=== PATIENT | male | born 1950 | race Caucasian/White ===

== ENCOUNTER → 2017-03-30 | Outpatient (CLI) | payer OTHER ==
[~2017-03-30] MED LIST: ASPIRIN81 M2 PO; ASTAXANTHIN4 MG PO; ATORVASTATIN CA20 MG PO; BIOTIN5 MG PO; CALCIUM 500 +1 EAC5 PO; CLA 1,000 MG1000 MG PO; COREG3.125 MG PO; COREG6.25 MG PO; EFFIENT10 MG PO; EPA-DHA 720 SO1 EACH PO; FERREX 150150 MG PO; FLAX SEED OIL1000 MG PO; FOLTX TABLET1 EAC1 PO; GINKGO BILOBA120 M1 PO; GLUCOSAMINE HC500 MG PO; HYALURONIC ACI1 EACH PO; HYDROCODON-ACE1 EAC7 PO; KRILL OIL 5001 EACH PO; LISINOPRIL10 MG PO; LISINOPRIL2.5 MG PO; LUKAID GLA1 GM/1 ML PO; LYCOPENE10 MG PO; MELATONIN3 MG PO; MSM1500 MG PO; NITROGLYCERIN0.4 MG SUBLING; OMEGA-31000 M1 PO; PACERONE 200 M200 M1 PO; PROSTATE HEALT1 EAC1 PO; RED WINE EXTRA1 EAC1 PO; RESVERATROL250 MG PO; SAW PALMETTO 1160 MG PO; SAW PALMETTO450 MG PO; SELENIMIN50 MCG PO; TYLENOL325 MG PO; UNICOMPLEX M TA1 TA1 PO; VITAMIN D1000 UNI1 PO; VITAMIN D3400 UNIT PO; VITAMIN E400 UNIT PO; VITAMINC500 PO; XALATAN2.5 ML OPHTHALMIC; ZINC30 M1 PO; [UNRECOGNIZED DRUG - OTHER] IV; [UNRECOGNIZED DRUG - OTHER] PO; [UNRECOGNIZED DRUG - OTHER] PO
== END ==
LOC: CAT 08:22
PROVIDERS: Internal Medicine Cardiovascular Disease
DX: I77.810 Thoracic aortic ectasia (principal)

== ENCOUNTER → 2017-07-09 | Outpatient (CLI) | payer OTHER | LOC: NUC 07:45 | DX: I25.10 Atherosclerotic heart disease of native coronary artery without angina pectoris (principal) ==

== ENCOUNTER → 2018-01-18 | Outpatient (CLI) | payer OTHER ==
--- NOTE | ~2018-01-18 | 2DMMODE ---
[facility] [address] [place] [address] 2 D/M-MODE ECHOCARDIOGRAM Name: GREGG MASON Room #: REG REPLACED BY [facility]#: [id number] Admission: 01/18/18 Attend Phys: Jake Grant MD Discharge: Date of : 50 Date of Service: 01/18/18 1017 Report #: [id number] THIS REPORT FOR: //name// APPROVED REPORT Study performed: 01/18/2018 09:15:42 EXAM: Comprehensive 2D, Doppler, and color-flow Echocardiogram Patient Location: Echo lab Status: routine BSA: 2.30 BP: 136/84 mmHg Other Information Study Quality: Good Indications CAD Hypertension/HDD 2D Dimensions RVDd: 40.99 mm LVEF(%): 33.94 (>50%) IVSd: 16.84 (7-11mm) LVOT Diam: 24.84 (18-24mm) LVDd: 54.09 mm PWd: 16.25 (7-11mm) Ascending Ao: 46.11 (22-36mm) LVDs: 45.26 (25-40mm) Aortic Root: 36.48 mm IVC: 16.00 mm Valdes's LVEF: 33.94 % Volumes Left Atrial Volume (Systole) Single Plane 4CH: 69.59 mL Single Plane 2CH: 109.52 mL LA ESV Index: 42.00 mL/m2 Aortic Valve AoV Peak Mert.: 2.61 m/s AO Peak Gr.: 27.18 mmHg LVOT Max P.50 mmHg AO Mean Gr.: 16.07 mmHg LVOT Mean P.97 mmHg AO V2 Mean: 1.93 m/s LVOT Max V: 0.94 m/s AO V2 VTI: 63.38 cm LVOT Mean V: 0.63 m/s BA (VTI): 1.94 cm2 LVOT V1 VTI: 25.33 cm BA Vmax: 1.74 cm2 AI Vmax: 4.03 m/s SV (LVOT): 122.75 mL [facility] [place] [place] [address] 2 D/M-MODE ECHOCARDIOGRAM Name: GREGG MASON Room #: [facility]#: [id number] Admission: 01/18/18 Attend Phys: Jake Grant MD Discharge: Date of : 50 Date of Service: 01/18/18 1017 Report #: [id number] [place]: 3.20 m/s2 AI PHT: 364.66 ms Mitral Valve E/A Ratio: 1.3 MV Decel. Time: 223.06 ms MV E Max Mert.: 0.77 m/s MV A Mert.: 0.59 m/s MV PHT: 64.69 ms Pulmonary Valve PV Peak Mert.: 0.89 m/s PV Peak Gr.: 3.15 mmHg Pulmonary Vein P Vein S: 0.57 m/s P Vein A: 0.25 m/s P Vein D: 0.65 m/s P Vein A Dur.: 110.7 msec P Vein S/D Ratio: 0.88 Tricuspid Valve TR Peak Mert.: 2.86 m/s RAP Estimate: 5.00 mmHg TR Peak Gr.: 32.80 mmHg PA Pressure: 38.00 mmHg Left Ventricle Left ventricle is at the upper limits of normal. Hypokinesis of the inferior wall Mild concentric left ventricular hypertrophy. Left ventricular systolic function is mild to moderately decreased. LVEF is 40-45%. Right Ventricle Right ventricle is normal. The right ventricular systolic function is normal. Atria Left atrium is moderately dilated. Right atrium is moderately dilated. Aortic Valve Aortic valve is calcified. Mild to moderate aortic regurgitation. There is mild valvular aortic stenosis. Calculated aortic valve area is 1.7 cm2 with maximum pressure gradient of 27 mmHg and mean pressure gradient of 16 mmHg. Mitral Valve The mitral valve is normal in structure. Mild to moderate mitral regurgitation. No evidence of mitral valve stenosis. [address] [address] 2 D/M-MODE ECHOCARDIOGRAM Name: GREGG MASON Room #: REG REPLACED BY [facility]#: [id number] Admission: 01/18/18 Attend Phys: Jake Grant MD Discharge: Date of : 50 Date of Service: 01/18/18 1017 Report #: [id number] Tricuspid Valve The tricuspid valve is normal in structure. Mild tricuspid regurgitation. PAP is estimated at 38 mmHg. Pulmonic Valve The pulmonary valve is normal in structure. Mild pulmonic regurgitation. Great Vessels The aortic root is normal in size. The ascending aorta is mildly dilated at 4.6 cm. IVC is normal in size and collapses >50% with inspiration. Pericardium There is no pericardial effusion. <Conclusion> Left ventricle is at the upper limits of normal. Mild concentric left ventricular hypertrophy. Left ventricular systolic function is mild to moderately decreased. Left atrium is moderately dilated. Mild to moderate aortic regurgitation. There is mild valvular aortic stenosis. Mild to moderate mitral regurgitation. Mild tricuspid regurgitation. PAP is estimated at 38 mmHg. The ascending aorta is mildly dilated at 4.6 cm. <ELECTRONICALLY SIGNED> By: Jake Grant MD 01/18/18 1017 1017 1017 Jake Grant MD /INF
== END ==
LOC: CV 08:31
DX: I25.10 Atherosclerotic heart disease of native coronary artery without angina pectoris (principal)

== ENCOUNTER → 2018-10-08 | Outpatient (CLI) | payer OTHER ==
[2018-10-08 08:53] LABS: CREATININE 1.1 mg/dL (0.7-1.3)
== END ==
LOC: CAT 08:01
PROVIDERS: Internal Medicine Cardiovascular Disease
DX: I71.1 Thoracic aortic aneurysm, ruptured (principal); K42.9 Umbilical hernia without obstruction or gangrene; M25.78 Osteophyte, vertebrae

== ENCOUNTER → 2019-01-17 | Outpatient (CLI) | payer OTHER ==
--- NOTE | 2019-01-17 14:09 | 2DMMODE ---
[facility] [place] [address] 2 D/M-MODE ECHOCARDIOGRAM Name: GREGG MASON Room #: REG [facility]#: [id number] ������������� Admission: 01/17/19 ������������� Attend Phys: Jake Grant MD Discharge: ��� ������������� ��� Date of : 50 Date of Service: 01/17/19 1408 �� Report #: [id number] �������� ��������������������������������������������[id number] THIS REPORT FOR: //name// APPROVED REPORT Study performed: 01/17/2019 12:56:54 EXAM: Comprehensive 2D, Doppler, and color-flow Echocardiogram Patient Location: Out-Patient Room #: Echo lab 2 Status: routine BSA: 2.33 HR: 62 bpm BP: 126/74 mmHg Rhythm: NSR Other Information Study Quality: Adequate Indications CAD 2D Dimensions IVSd: 15.44 (7-11mm) LVOT Diam: 23.51 (18-24mm) LVDd: 60.24 mm PWd: 12.70 (7-11mm) LVDs: 51.67 (25-40mm) Aortic Root: 38.51 mm IVC: 14.00 mm Volumes Left Atrial Volume (Systole) Single Plane 4CH: 67.72 mL Single Plane 2CH: 137.50 mL LA ESV Index: 47.00 mL/m2 Aortic Valve AoV Peak Mert.: 2.58 m/s AO Peak Gr.: 26.59 mmHg LVOT Max P.25 mmHg AO Mean Gr.: 16.93 mmHg LVOT Mean P.82 mmHg AO V2 Mean: 1.97 m/s LVOT Max V: 1.03 m/s AO V2 VTI: 68.16 cm LVOT Mean V: 0.79 m/s BA (VTI): 1.94 cm2 LVOT V1 VTI: 30.50 cm BA Vmax: 1.73 cm2 AI Vmax: 3.39 m/s SV (LVOT): 132.32 mL AI [place]: 1.16 m/s2 AI PHT: 846.74 ms [facility] [address] [place] [address] 2 D/M-MODE ECHOCARDIOGRAM Name: GREGG MASON Anand Room #: REG [facility]#: [id number] ������������� Admission: 01/17/19 ������������� Attend Phys: Jake Grant MD Discharge: ��� ������������� ��� Date of : 50 Date of Service: 01/17/19 1408 �� Report #: [id number] �������� ��������������������������������������������[id number] Mitral Valve E/A Ratio: 1.8 MV Decel. Time: 221.65 ms MV E Max Mert.: 0.91 m/s MV A Mert.: 0.52 m/s MV PHT: 64.28 ms IVRT: 110.73 ms Pulmonary Valve PV Peak Mert.: 0.89 m/s PV Peak Gr.: 3.35 mmHg Pulmonary Vein P Vein S: 0.65 m/s P Vein A: 0.15 m/s P Vein D: 0.79 m/s P Vein A Dur.: 115.3 msec P Vein S/D Ratio: 0.82 Tricuspid Valve TR Peak Mert.: 2.91 m/s TR Peak Gr.: 33.93 mmHg PA Pressure: 39.00 mmHg Left Ventricle Left ventricle is dilated. Hypokinesis of the inferior wall. Mild concentric left ventricular hypertrophy. Left ventricular systolic function is mild to moderately decreased. LVEF is 40-45%. Grade I - abnormal relaxation pattern. Right Ventricle The right ventricle is normal size. The right ventricular systolic function is normal. Atria Left atrium is dilated. Right atrium is dilated. Aortic Valve The aortic valve is normal in structure. Aortic valve is calcified. Mild to moderate aortic regurgitation. Mild aortic stenosis. Mitral Valve The mitral valve is normal in structure. Mild mitral regurgitation. No evidence of mitral valve stenosis. Tricuspid Valve The tricuspid valve is normal in structure. There is trace tricuspid regurgitation. Estimated PAP 39 mmHg. [place] [address] 2 D/M-MODE ECHOCARDIOGRAM Name: GREGG MASON Room #: REG [facility]#: [id number] ������������� Admission: 01/17/19 ������������� Attend Phys: Jake Grant MD Discharge: ��� ������������� ��� Date of : 50 Date of Service: 01/17/19 1408 �� Report #: [id number] �������� ��������������������������������������������[id number] hypertension. Pulmonic Valve The pulmonary valve is normal in structure. Trace pulmonic regurgitation. Great Vessels The aortic root is normal in size. IVC is normal in size and collapses >50% with inspiration. Pericardium There is no pericardial effusion. <Conclusion> Left ventricle is dilated. Mild concentric left ventricular hypertrophy. Left ventricular systolic function is mild to moderately decreased. LVEF is 40-45%. Hypokinesis of the inferior wall. Grade I - abnormal relaxation pattern. The right ventricle is normal size. Left atrium is dilated. Right atrium is dilated. Mild to moderate aortic regurgitation. Mild aortic stenosis. Mild mitral regurgitation. There is trace tricuspid regurgitation. Estimated PAP 39 mmHg. ��������������������������������������������� <ELECTRONICALLY SIGNED> ���������������������������������������� By: Jake Grant MD ��������������������������������������������� 01/17/19 1408 1408 1408 Jake Grant MD /INF
== END ==
LOC: CV 12:29
DX: I08.0 Rheumatic disorders of both mitral and aortic valves (principal); I25.10 Atherosclerotic heart disease of native coronary artery without angina pectoris

== ENCOUNTER → 2019-08-29 | Outpatient (CLI) | payer OTHER ==
[~2019-08-29] MED LIST changes: +MOVE FREE ULTR1 EAC1 PO; +SUPER THERAVIT1 EACH PO; +VITAMIN D22000 UNIT PO
== END ==
LOC: NUC 07:26
DX: I25.10 Atherosclerotic heart disease of native coronary artery without angina pectoris (principal); E78.5 Hyperlipidemia, unspecified; I11.0 Hypertensive heart disease with heart failure; I50.9 Heart failure, unspecified; Z87.891 Personal history of nicotine dependence

== ENCOUNTER → 2019-09-08 | Outpatient (CLI) | payer OTHER ==
[~2019-09-08] VITALS: Ht 185.4 cm; Wt 110.2 kg
[2019-09-08 07:14] LABS: HEMATOCRIT 43.2 % (42.0-52.0); HEMOGLOBIN 14.8 gm/dL (14.0-18.0); MCH 31.4 pg (26.0-34.0); MCHC 34.3 g/dL (28.0-37.0); MCV 91.8 fL (80.0-100.0); RBC 4.7 mil/uL (4.50-6.00); RDW 13.2 % (10.5-14.5)
[2019-09-08 07:25] LABS: CALCIUM 9.5 mg/dL (8.5-10.1); CREATININE 1.1 mg/dL (0.7-1.3)
[2019-09-08 08:11] VITALS: BP 118/64
--- NOTE | 2019-09-08 13:41 | CATHLAB ---
[facility] [address] [place] [address] INVASIVE PROCEDURE REPORT Name: MARLONGREGG Anand [id number] Admission: 09/08/19 Attend Phys: Jake Grant MD Discharge: Date of : 50 Report #: [id number] THIS REPORT FOR: //name// APPROVED REPORT Study performed: 09/08/2019 09:23:01 Patient Details Patient Status: Out-Patient Room #: The patient is a 68 year-old male Event Personnel Jake Grant Contracting Engineer, Erma Ruffin Monitor, Pj Reza RTR Monitor, Rhoda Rudd RTR Scrub, Luis Kent RTR Scrub, Bret Jacobs RN, Char Cornejo RTR Scrub, Dilma Castillo RN records manager Performed Art Access - R femoral artery* 77110 Initial Mod Sed Same Phys/QHP Gr5y 843316 Coronaries Angiography and Bypass Grafts 507513 CORCABG 64592 Mod Sed Same Phys/QHP Ea 485923 Hemostasis with Manual pressure Indication Dyspnea, Positive stress test Risk Factors Hypercholesterolemia, Hypertension Previous Procedures/Diagnoses Previous CABGPrevious PCI Procedure Narrative The Right Groin^ was infiltrated with 1% Lidocaine subcutaneous anesthesia. A PINNACLE 4FR Sheath #[id number] sheath was inserted into the RFA^. Coronary angiography was performed using coronary diagnostic catheters. The right coronary system was accessed and visualized with a JR4 catheter. The left coronary system was accessed and visualized with a 4FR JL6 #[id number] catheter. Hemostasis was obtained with manual pressure following sheath removal without any complications. The patient tolerated the procedure well and there were no complications associated with the procedure. There was no hematoma. Intraoperative Conscious Sedation [facility] [address] [place] [address] INVASIVE PROCEDURE REPORT Name: GREGG MASON Room #: REG [facility]#: [id number] Admission: 09/08/19 Attend Phys: Jake Grant MD Discharge: Date of : 50 Report #: [id number] Sedation start time: 09:47 Case end Time: 10:38 Fentanyl 50 mcg Versed 1.5 mg Fluoro Time: 8.45 minutes Dose: DAP 23945.00 cGycm2 Contrast Type and Amount: Omnipaque 115 ml Coronary Angiography The patient's coronary anatomy is right dominant. Diagnostic Cath Left Main This is a patent vessel, with no flow-limiting lesions. LAD After giving off the first diagonal artery, there is a severe occlusion in the LAD. There is a patent JEAN graft with an end-to-side anastomosis to the mid LAD. Diagonal 1 This is a moderate size caliber vessel, patent with no flow-limiting lesions. Circumflex There is mild to moderate disease in the proximal segment. There is a patent stent in the mid segment of the left circumflex artery, extending into the proximal portion of the first obtuse marginal artery. The stent is widely patent. OM1 This is a moderate size caliber vessel, supplying multiple branches as it travels down the lateral wall. Right Coronary This vessel is occluded in the midsegment. R PDA The vein graft to the PDA is occluded at the ostium. The PDA is filled via collateral circulation from the left coronary arteries. Left Ventriculography Left Ventriculography was not performed. Ejection Fraction was 40% based off patient's Nuclear Cardiac Stress Test. Hemodynamics The aortic pressure is 129/64 mmHg with a mean of 84 mmHg. Conclusion 1. Patent JEAN graft to the mid LAD. 2. Patent left circumflex stent extending into the first OM vessel. 3. Occluded vein graft to the PDA. The [place] PDA is filled via collateral circulation. [facility] [address] [place] [address] INVASIVE PROCEDURE REPORT Name: GREGG MASON Room #: REG [facility]#: [id number] Admission: 09/08/19 Attend Phys: Jake Grant MD Discharge: Date of : 50 Report #: [id number] 4. Moderate segmental LV dysfunction. 5. Recommend aggressive risk factor management. <ELECTRONICALLY SIGNED> By: Jake Grant MD 09/08/19 1340 1340 1340 Jake Grant MD /INF
--- NOTE | 2019-09-08 17:17 | EKG ---
[address] [address] ELECTROCARDIOGRAM REPORT Name: GREGG MASON Room #: REG [facility]#: [id number] Admission: 09/08/19 Attend Phys: Jake Grant MD Discharge: Date of : 50 Report #: [id number] THIS REPORT FOR: //name// [facility] Test Date: 2019-09-08 Test Time: 07:28:46 Pat Name: GREGG MASON Department: Room: Gender: Medical Records Custodian: Selvin CORDERO : 1950 Requested By: Jake Grant Order Number: [id number] MD: Nguyễn Franco Measurements Intervals Cameron Rate: 65 P: 34 FL: 185 QRS: 22 QRSD: 119 T: 3 QT: 427 QTc: 444 Interpretive Statements Sinus rhythm Ventricular premature complex Nonspecific intraventricular conduction delay Inferior infarct, old Compared to ECG 06/20/2016 07:13:21 Ventricular premature complex(es) now present Electronically Signed On 09-08-2019 17:17:07 ENCAPSULATOR by Nguyễn Franco [email or web address] <ELECTRONICALLY SIGNED> By: Nguyễn Franco MD, [facility] 09/08/19 1717 7 7 Nguyễn Franco MD, [facility] /EPI
== END | disposition home or self-care (01) ==
LOC: CATH 06:25
PROVIDERS: Internal Medicine Cardiovascular Disease
DX: R94.39 Abnormal result of other cardiovascular function study (principal); I25.719 Atherosclerosis of autologous vein coronary artery bypass graft(s) with unspecified angina pectoris; I11.0 Hypertensive heart disease with heart failure; I50.1 Left ventricular failure, unspecified; E11.9 Type 2 diabetes mellitus without complications; E78.00 Pure hypercholesterolemia, unspecified; G47.30 Sleep apnea, unspecified; E78.5 Hyperlipidemia, unspecified; I25.2 Old myocardial infarction; Z95.1 Presence of aortocoronary bypass graft; I42.9 Cardiomyopathy, unspecified; Z98.890 Other specified postprocedural states; Z79.899 Other long term (current) drug therapy; Z82.49 Family history of ischemic heart disease and other diseases of the circulatory system; Z87.891 Personal history of nicotine dependence; Z79.01 Long term (current) use of anticoagulants; Z79.82 Long term (current) use of aspirin

== ENCOUNTER → 2019-10-10 | Outpatient (CLI) | payer OTHER ==
[2019-10-10 09:41] LABS: CREATININE 1.1 mg/dL (0.7-1.3)
== END ==
LOC: CAT 08:53
PROVIDERS: Internal Medicine Cardiovascular Disease
DX: I71.1 Thoracic aortic aneurysm, ruptured (principal); I25.10 Atherosclerotic heart disease of native coronary artery without angina pectoris; K42.9 Umbilical hernia without obstruction or gangrene

== ENCOUNTER → 2020-05-31 | Outpatient (CLI) | payer OTHER | LOC: SJCVC 12:40 | PROVIDERS: ATTEND Internal Medicine Cardiovascular Disease | DX: R94.31 Abnormal electrocardiogram [ECG] [EKG] (principal); I49.9 Cardiac arrhythmia, unspecified; I25.5 Ischemic cardiomyopathy; I25.10 Atherosclerotic heart disease of native coronary artery without angina pectoris; E78.00 Pure hypercholesterolemia, unspecified; I10 Essential (primary) hypertension; I71.2 Thoracic aortic aneurysm, without rupture; Z95.1 Presence of aortocoronary bypass graft; Z79.899 Other long term (current) drug therapy; Z87.891 Personal history of nicotine dependence ==

== ENCOUNTER → 2020-10-11 | Outpatient (CLI) | payer OTHER ==
[2020-10-11 09:40] LABS: CALCIUM 9.4 mg/dL (8.5-10.1); CREATININE 1.1 mg/dL (0.7-1.3); POTASSIUM 4.2 mmol/L (3.5-5.1)
== END ==
LOC: CAT 08:48
PROVIDERS: ATTEND Internal Medicine Cardiovascular Disease
DX: I71.1 Thoracic aortic aneurysm, ruptured (principal); M47.9 Spondylosis, unspecified

== ENCOUNTER → 2020-12-04 | Outpatient (CLI) | payer OTHER | LOC: SJCVCIMAG 09:10 | PROVIDERS: ATTEND Internal Medicine Cardiovascular Disease | DX: R94.31 Abnormal electrocardiogram [ECG] [EKG] (principal); I08.3 Combined rheumatic disorders of mitral, aortic and tricuspid valves; I11.9 Hypertensive heart disease without heart failure; I25.10 Atherosclerotic heart disease of native coronary artery without angina pectoris; I25.5 Ischemic cardiomyopathy; E78.00 Pure hypercholesterolemia, unspecified; I71.2 Thoracic aortic aneurysm, without rupture; E11.9 Type 2 diabetes mellitus without complications; R60.0 Localized edema; G47.33 Obstructive sleep apnea (adult) (pediatric); Z87.891 Personal history of nicotine dependence; Z79.82 Long term (current) use of aspirin; Z79.84 Long term (current) use of oral hypoglycemic drugs; Z79.899 Other long term (current) drug therapy; Z95.1 Presence of aortocoronary bypass graft; Z90.89 Acquired absence of other organs ==

== ENCOUNTER → 2021-06-04 | Outpatient (CLI) | payer OTHER | LOC: SJCVCIMAG 09:07 | PROVIDERS: ATTEND Internal Medicine Cardiovascular Disease | DX: R00.0 Tachycardia, unspecified (principal); I49.3 Ventricular premature depolarization; R06.00 Dyspnea, unspecified; R53.83 Other fatigue; I25.10 Atherosclerotic heart disease of native coronary artery without angina pectoris; I25.5 Ischemic cardiomyopathy; I10 Essential (primary) hypertension; E78.5 Hyperlipidemia, unspecified; I48.0 Paroxysmal atrial fibrillation; I35.1 Nonrheumatic aortic (valve) insufficiency; I71.2 Thoracic aortic aneurysm, without rupture; E11.9 Type 2 diabetes mellitus without complications; G47.33 Obstructive sleep apnea (adult) (pediatric); Z98.61 Coronary angioplasty status; Z95.1 Presence of aortocoronary bypass graft; Z79.82 Long term (current) use of aspirin; Z79.84 Long term (current) use of oral hypoglycemic drugs; Z79.899 Other long term (current) drug therapy; Z87.891 Personal history of nicotine dependence; Z82.49 Family history of ischemic heart disease and other diseases of the circulatory system ==

== ENCOUNTER → 2021-10-17 | Outpatient (CLI) | payer OTHER | LOC: CAT 10-14 09:10 | PROVIDERS: ATTEND Internal Medicine Cardiovascular Disease | DX: I71.2 Thoracic aortic aneurysm, without rupture (principal); K42.9 Umbilical hernia without obstruction or gangrene ==

== ENCOUNTER → 2021-12-05 | Outpatient (CLI) | payer OTHER | LOC: SJCVCIMAG 08:42 | PROVIDERS: ATTEND Internal Medicine Cardiovascular Disease | DX: I08.3 Combined rheumatic disorders of mitral, aortic and tricuspid valves (principal); R94.31 Abnormal electrocardiogram [ECG] [EKG]; I49.3 Ventricular premature depolarization; I11.9 Hypertensive heart disease without heart failure; I25.10 Atherosclerotic heart disease of native coronary artery without angina pectoris; I25.5 Ischemic cardiomyopathy; E78.5 Hyperlipidemia, unspecified; I71.2 Thoracic aortic aneurysm, without rupture; G47.33 Obstructive sleep apnea (adult) (pediatric); Z79.82 Long term (current) use of aspirin; Z79.899 Other long term (current) drug therapy; Z98.61 Coronary angioplasty status; Z98.890 Other specified postprocedural states; Z87.891 Personal history of nicotine dependence ==